=== PATIENT | male | born 1945 | race Asian ===

== ENCOUNTER 2017-03-13 15:09 | Inpatient (IN) | payer MEDICARE, BC ==
[~2017-03-13] VITALS: Ht 160 cm; Wt 68.0 kg
[2017-03-13 16:03] LABS: CONDITION Y; DEFINITIVE SEE PRINTOUT; Eosinophils # (auto) 0.4 uL; Hematocrit 25.6 % (41.0-53.0); Hemoglobin 8.8 g/dL (13.5-17.5); Neutrophils # (auto) 6.3 uL
[2017-03-13 16:22] LABS: Albumin 2.9 g/dL (3.4-5.0); Anion Gap 13 (5-15); Aspartate Aminotransferase 11 U/L (15-37); BUN/Creatinine Ratio 4.3; Blood Urea Nitrogen 57 mg/dL (7-18); Carbon Dioxide 24 mmol/L (21-32); Chloride 105 mmol/L (98-107); GFR African American 5 mL/min; GFR Non-African American 4 mL/min; Glucose 107 mg/dL (74-106); Magnesium 2.4 mg/dL (1.6-2.6); Potassium 3.9 mmol/L (3.5-5.1); Sodium 142 mmol/L (136-145)
[2017-03-13 16:27] LABS: Basophils # (auto) 0.1 uL; Basophils % (auto) 0.5 % (0.0-2.0); Eosinophils % (auto) 3.9 % (0.0-7.0); Lymphocytes # (auto) 1.8 uL; Lymphocytes % (auto) 19.1 % (10.0-50.0); Mean Corpuscular Hemoglobin 35.4 pg (28.0-32.0); Mean Corpuscular Hgb Conc. 34.5 g/dL (32.0-36.0); Mean Corpuscular Volume 102.6 fL (80.0-100.0); Mean Platelet Volume 8.5 fL (7.4-10.4); Monocytes % (auto) 10.7 % (0.0-12.0); Neutrophils % (auto) 65.8 % (37.0-80.0); Platelet Count (auto) 324 10^3/uL (140-450); Red Cell Distribution Width 14.3 % (11.6-16.0); White Blood Cell 9.6 10^3/uL (4.4-10.8)
[2017-03-13 16:30] LABS: Alkaline Phosphatase 78 U/L (45-117); Bilirubin, Total 0.2 mg/dL (0.2-1.0); Total Protein 6.7 g/dL (6.4-8.2)
[2017-03-13] MEDS ORDERED: hydrALAZINE HCL 20 MG/ML VL IV ONE (17:15)
[2017-03-13] MEDS ORDERED: MORPHINE SULF INJ 2 MG/ML SYRINGE 1ML IV PRN ×2 (17:30→17:45)
[2017-03-13] MEDS ORDERED: ACETAMINOPHEN 500 MG TAB PO PRN (17:30)
[2017-03-13] MEDS ORDERED: ONDANSETRON HCL 4 MG/2 ML VIAL IV PRN (17:30)
[2017-03-13] MEDS ORDERED: LORazepam 0.5 MG TAB PO PRN (17:30)
[2017-03-13] MEDS ORDERED: HYDROcodone-ACET 5/325MG TAB PO PRN (17:30)
[2017-03-13] MEDS ORDERED: NITROGLYCERIN 0.4 MG SL TAB SL PRN (17:45)
[2017-03-13] MEDS ORDERED: cloNIDine HCL 0.1 MG TAB PO ONE (17:45)
[2017-03-13] MEDS ORDERED: LABETALOL HCL 5 MG/ML ML 20ML VIAL IV PRN (17:45)
[2017-03-13] MEDS ORDERED: NITROGLYCERIN 0.4 MG SL TAB SL ONE (17:56)
[2017-03-13] MEDS ORDERED: PANTOPRAZOLE 40 MG TAB PO ONE (18:00)
[2017-03-13] MEDS ORDERED: METOPROLOL TARTRATE 50 MG TAB PO ONE (18:15)
[2017-03-13] MEDS: CALCIUM ACETATE 667 MG CAP PO SCH (18:31)
[2017-03-13 18:51] LABS: Vitamin B12 778 pg/mL (211-911)
[2017-03-13 18:57] LABS: Temperature: 23.7 C (20.0-25.0)
[2017-03-13 19:08] LABS: Cholesterol 112 mg/dL (< 200); HDL Cholesterol 28 mg/dL (40-59); LDL Cholesterol 63 mg/dL (< 100); Triglycerides 175 mg/dL (< 150)
[2017-03-13] MEDS ORDERED: METOPROLOL TARTRATE 25 MG TAB PO SCH (22:00)
[2017-03-13] MEDS: ATORVASTATIN 20 MG TAB PO SCH (22:00)
[2017-03-13] MEDS: DOCUSATE SOD 100 MG CAP PO SCH (22:00)
[2017-03-13] MEDS: METOPROLOL TARTRATE 25 MG TAB PO SCH (22:08)
[2017-03-13 23:00] VITALS: BP 174/96
[2017-03-13] MEDS ORDERED: ASPI81CH59 PO (23:27)
[2017-03-13] MEDS ORDERED: ATOR20TA50 PO (23:27)
[2017-03-13] MEDS ORDERED: FURO40TA4 PO (23:27)
[2017-03-13] MEDS ORDERED: CIP500T PR (23:27)
[2017-03-13] MEDS ORDERED: LORA1TAB12 PO (23:27)
[2017-03-13] MEDS ORDERED: LEVO25TA6 PO (23:27)
[2017-03-13] MEDS ORDERED: CLOP75TA41 PO (23:27)
[2017-03-13] MEDS ORDERED: GENT0.1C3 EX (23:27)
[2017-03-13] MEDS ORDERED: DOCU-94 PO (23:27)
[2017-03-13] MEDS ORDERED: CALC0.25 PO (23:27)
[2017-03-13] MEDS ORDERED: ZOLP10TA PO (23:27)
[2017-03-13] MEDS ORDERED: CALC667T2 PO (23:27)
[2017-03-13] MEDS ORDERED: METO25TA5 PO (23:27)
[2017-03-14] MEDS: ZOLPIDEM TARTRATE 5 MG TAB PO PRN ×2 (01:42→21:28)
[2017-03-14 05:50] LABS: Basophils # (auto) 0 uL; Basophils % (auto) 0.4 % (0.0-2.0); CONDITION Y; DEFINITIVE SEE PRINTOUT; Eosinophils # (auto) 0.4 uL; Eosinophils % (auto) 3.7 % (0.0-7.0); Hematocrit 23.2 % (41.0-53.0); Hemoglobin 7.9 g/dL (13.5-17.5); Lymphocytes # (auto) 1.7 uL; Lymphocytes % (auto) 17.9 % (10.0-50.0); Mean Corpuscular Hgb Conc. 33.8 g/dL (32.0-36.0); Mean Corpuscular Volume 103.4 fL (80.0-100.0); Mean Platelet Volume 8.1 fL (7.4-10.4); Monocytes % (auto) 10.5 % (0.0-12.0); Neutrophils # (auto) 6.6 uL; Neutrophils % (auto) 67.5 % (37.0-80.0); Platelet Count (auto) 269 10^3/uL (140-450); Red Cell Distribution Width 14.1 % (11.6-16.0); White Blood Cell 9.8 10^3/uL (4.4-10.8)
[2017-03-14 06:30] LABS: BUN/Creatinine Ratio 4.7; Calcium 9.2 mg/dL (8.5-10.1); Potassium 4.1 mmol/L (3.5-5.1)
[2017-03-14] MEDS: LEVOTHYROXINE SODIUM 25 MCG TAB PO SCH (07:16)
[2017-03-14] MEDS: CALCIUM ACETATE 667 MG CAP PO SCH ×3 (07:56→18:00)
[2017-03-14 08:00] VITALS: BP 155/84
[2017-03-14] MEDS: ASPirin-EC 81 mg tab PO SCH (09:41)
[2017-03-14] MEDS: CALCITRIOL 0.25 MCG CAP PO SCH (09:41)
[2017-03-14] MEDS: PANTOPRAZOLE 40 MG TAB PO SCH (09:41)
[2017-03-14] MEDS: METOPROLOL TARTRATE 25 MG TAB PO SCH ×2 (09:41→21:28)
[2017-03-14] MEDS: DOCUSATE SOD 100 MG CAP PO SCH ×2 (09:42→21:27)
[2017-03-14 12:00] VITALS: BP 157/93
[2017-03-14] MEDS ORDERED: EPOETIN ALFA 10,000 UNIT/1 ML VIAL SC ONE (15:30)
[2017-03-14 16:00] VITALS: BP 140/88
[2017-03-14] MEDS ORDERED: amLODIPine BESYLATE 5 MG TAB PO ONE (17:30)
[2017-03-14] MEDS ORDERED: ISOSORBIDE MONONITRATE 60 MG TAB PO ONE (17:30)
[2017-03-14 19:58] VITALS: BP 116/68
[2017-03-14] MEDS: ATORVASTATIN 20 MG TAB PO SCH (21:28)
[2017-03-15] MEDS: LEVOTHYROXINE SODIUM 25 MCG TAB PO SCH (05:56)
[2017-03-15 06:36] LABS: Eosinophils % (auto) 3.6 % (0.0-7.0); Lymphocytes % (auto) 21.5 % (10.0-50.0); Monocytes % (auto) 9.2 % (0.0-12.0); Neutrophils % (auto) 65.3 % (37.0-80.0); White Blood Cell 9.3 10^3/uL (4.4-10.8)
[2017-03-15 06:37] LABS: Basophils # (auto) 0 uL; Basophils % (auto) 0.4 % (0.0-2.0); CONDITION Y; DEFINITIVE SEE PRINTOUT; Eosinophils # (auto) 0.3 uL; Hematocrit 22.2 % (41.0-53.0); Hemoglobin 7.6 g/dL (13.5-17.5); Mean Corpuscular Hemoglobin 35.1 pg (28.0-32.0); Mean Corpuscular Hgb Conc. 34.3 g/dL (32.0-36.0); Mean Corpuscular Volume 102.4 fL (80.0-100.0); Mean Platelet Volume 8.7 fL (7.4-10.4); Monocytes # (auto) 0.9 uL; Neutrophils # (auto) 6.1 uL; Platelet Count (auto) 263 10^3/uL (140-450); Red Cell Distribution Width 14.2 % (11.6-16.0)
[2017-03-15 08:00] VITALS: BP 130/85
[2017-03-15] MEDS: CALCIUM ACETATE 667 MG CAP PO SCH ×3 (08:00→18:00)
[2017-03-15 08:40] LABS: BUN/Creatinine Ratio 4.7; Calcium 9.8 mg/dL (8.5-10.1)
[2017-03-15] MEDS: PANTOPRAZOLE 40 MG TAB PO SCH (09:37)
[2017-03-15] MEDS: ISOSORBIDE MONONITRATE 60 MG TAB PO SCH (09:37)
[2017-03-15] MEDS: METOPROLOL TARTRATE 25 MG TAB PO SCH ×2 (09:37→21:30)
[2017-03-15] MEDS: ASPirin-EC 81 mg tab PO SCH (09:38)
[2017-03-15] MEDS: DOCUSATE SOD 100 MG CAP PO SCH ×2 (09:38→21:31)
[2017-03-15] MEDS: CALCITRIOL 0.25 MCG CAP PO SCH (09:39)
[2017-03-15] MEDS: amLODIPine BESYLATE 5 MG TAB PO SCH (10:00)
[2017-03-15 12:00] VITALS: BP 109/70
[2017-03-15 15:39] LABS: INR 0.95 (0.9-1.15); Prothrombin Time 10.3 sec (9.37-12.3)
[2017-03-15 15:56] VITALS: BP 116/63
[2017-03-15 19:10] VITALS: BP 141/77
[2017-03-15] MEDS: ATORVASTATIN 20 MG TAB PO SCH (21:29)
[2017-03-15 22:00] VITALS: BP 145/80
[2017-03-16] VITALS (10 sets, daily range): BP systolic 122–159; BP diastolic 69–92
[2017-03-16 05:59] LABS: Hematocrit 22.6 % (41.0-53.0)
[2017-03-16] MEDS: LEVOTHYROXINE SODIUM 25 MCG TAB PO SCH (06:00)
[2017-03-16 06:22] LABS: Calcium 9.5 mg/dL (8.5-10.1); Potassium 3.7 mmol/L (3.5-5.1)
[2017-03-16] MEDS ORDERED: LIDOCAINE 2%HCL (LOCAL ANESTH.) INJ 20ML MDV ONE (07:25)
[2017-03-16] MEDS ORDERED: IODIXANOL 320MG/ML 100ML BTL IV ONE (07:25)
[2017-03-16] MEDS ORDERED: MIDAZOLAM HCL 1MG/1ML-2 ML VIAL ONE (07:27)
[2017-03-16] MEDS ORDERED: SODIUM CHL 0.9% 0 ML ONE (07:27)
[2017-03-16] MEDS ORDERED: ANGIOMAX 250 MG VIAL IV ONE (07:27)
[2017-03-16] MEDS ORDERED: fentaNYL CITRATE 100 MCG/2 ML VL ONE (07:28)
[2017-03-16] MEDS ORDERED: IOHEXOL 350 MG/ML 100ML IJ ONE ×2 (07:43→07:57)
[2017-03-16] MEDS: CALCIUM ACETATE 667 MG CAP PO SCH ×3 (07:46→18:05)
[2017-03-16] MEDS ORDERED: SODIUM CHLORIDE 0.9% 1,000 ML IV SCH (08:45)
[2017-03-16] MEDS: DOCUSATE SOD 100 MG CAP PO SCH ×3 (09:53→21:31)
[2017-03-16] MEDS: ASPirin-EC 81 mg tab PO SCH ×2 (09:53→11:51)
[2017-03-16] MEDS: METOPROLOL TARTRATE 25 MG TAB PO SCH ×3 (09:53→21:31)
[2017-03-16] MEDS: amLODIPine BESYLATE 5 MG TAB PO SCH ×2 (09:53→11:52)
[2017-03-16] MEDS: PANTOPRAZOLE 40 MG TAB PO SCH ×2 (09:53→11:52)
[2017-03-16] MEDS: ISOSORBIDE MONONITRATE 60 MG TAB PO SCH ×2 (09:53→11:51)
[2017-03-16] MEDS: CALCITRIOL 0.25 MCG CAP PO SCH ×2 (09:53→11:53)
[2017-03-16] MEDS ORDERED: VANCOMYCIN 1GM/250ML D5W 250 ML IV ONE (13:30)
[2017-03-16] MEDS ORDERED: ACCU-CHEK COMFORT CURVE STRIP VI ONE ×2 (13:30)
[2017-03-16] MEDS ORDERED: ceFAZolin 1GM/50ML D5W 50 ML IV ONE (13:30)
[2017-03-16 14:29] LABS: Basophils # (auto) 0 uL; Basophils % (auto) 0.1 % (0.0-2.0); CONDITION Y; DEFINITIVE SEE PRINTOUT; Eosinophils # (auto) 0.3 uL; Hematocrit 23.6 % (41.0-53.0); Hemoglobin 8.2 g/dL (13.5-17.5); Lymphocytes # (auto) 1.4 uL; Mean Corpuscular Hgb Conc. 34.7 g/dL (32.0-36.0); Mean Corpuscular Volume 100.9 fL (80.0-100.0); Monocytes # (auto) 1.2 uL; Monocytes % (auto) 11.6 % (0.0-12.0); Neutrophils # (auto) 7.1 uL; Neutrophils % (auto) 71.3 % (37.0-80.0); Platelet Count (auto) 317 10^3/uL (140-450); Red Cell Distribution Width 14.4 % (11.6-16.0); White Blood Cell 9.9 10^3/uL (4.4-10.8)
[2017-03-16 14:51] LABS: Albumin 2.7 g/dL (3.4-5.0); BUN/Creatinine Ratio 5.3; Bilirubin, Total 0.3 mg/dL (0.2-1.0); Calcium 9.5 mg/dL (8.5-10.1); Total Protein 6.4 g/dL (6.4-8.2)
[2017-03-16] MEDS: MUPIROCIN 2% OINT 22GM TOP SCH (20:57)
[2017-03-16] MEDS ORDERED: MUPIROCIN 2% OINT 22GM TOP SCH (21:00)
[2017-03-16] MEDS: ATORVASTATIN 20 MG TAB PO SCH (21:30)
[2017-03-16] MEDS ORDERED: ASCORBIC ACID 500 MG TAB PO ONE ×2 (22:00)
[2017-03-17] VITALS (47 sets, daily range): BP systolic 19–187; BP diastolic 7–105
[2017-03-17] MEDS ORDERED: CHLORHEXIDINE 4% TOPICAL soln 118ML TOP ONE ×2 (02:00)
[2017-03-17] MEDS: MUPIROCIN 2% OINT 22GM TOP SCH ×2 (03:30→21:01)
[2017-03-17 04:03] LABS: Urine RBC None Seen /hpf (0 - 3)
[2017-03-17 04:03] LABS: Basophils # (auto) 0 uL; Basophils % (auto) 0.2 % (0.0-2.0); CONDITION Y; DEFINITIVE SEE PRINTOUT; Eosinophils # (auto) 0.4 uL; Eosinophils % (auto) 3.6 % (0.0-7.0); Hematocrit 23.2 % (41.0-53.0); Lymphocytes # (auto) 1.8 uL; Lymphocytes % (auto) 16.9 % (10.0-50.0); Mean Corpuscular Hemoglobin 35.4 pg (28.0-32.0); Mean Corpuscular Hgb Conc. 34.3 g/dL (32.0-36.0); Mean Corpuscular Volume 103.2 fL (80.0-100.0); Mean Platelet Volume 8.4 fL (7.4-10.4); Monocytes # (auto) 1.3 uL; Neutrophils # (auto) 7.2 uL; Neutrophils % (auto) 67.3 % (37.0-80.0); Platelet Count (auto) 286 10^3/uL (140-450); Red Cell Distribution Width 13.8 % (11.6-16.0); White Blood Cell 10.7 10^3/uL (4.4-10.8)
[2017-03-17 04:15] LABS: INR 0.97 (0.9-1.15); Partial Thromboplastin Time 27.3 sec (22.64-33.71); Prothrombin Time 10.6 sec (9.37-12.3)
[2017-03-17 04:25] LABS: Calcium 9.3 mg/dL (8.5-10.1); Potassium 3.7 mmol/L (3.5-5.1)
[2017-03-17 04:32] LABS: Urine Bilirubin Negative (Negative); Urine Blood Negative /uL (Negative); Urine Color Yellow (Yellow); Urine Ketone Negative (Negative); Urine Nitrite Negative (Negative); Urine Urobilinogen Normal (Negative)
[2017-03-17 04:34] LABS: Urine Glucose 2+ mg/dL (Normal)
[2017-03-17 04:35] LABS: BUN/Creatinine Ratio 5.2
[2017-03-17] MEDS: LEVOTHYROXINE SODIUM 25 MCG TAB PO SCH (04:36)
[2017-03-17] MEDS ORDERED: CHLORHEXIDINE 0.12% ORAL rinse 473ML MT ONE ×2 (06:00→13:30)
[2017-03-17] MEDS ORDERED: ceFAZolin 1GM VL ONE (06:21)
[2017-03-17] MEDS ORDERED: NEOMYCIN-BACITRACIN-POLYM 15GM TOP OINT TOP ONE (06:21)
[2017-03-17] MEDS ORDERED: HEPARIN 1,000 UNITS/ml 1ML VIAL ONE ×2 (06:22→14:23)
[2017-03-17] MEDS ORDERED: PAPAVERINE HCL 60 MG/2 ML 2ML VIAL ONE (06:22)
[2017-03-17] MEDS ORDERED: LIDOCAINE 2%HCL (LOCAL ANESTH.) INJ 20ML MDV ONE (06:24)
[2017-03-17] MEDS ORDERED: MIDAZOLAM HCL 1MG/1ML-2 ML VIAL ONE (06:29)
[2017-03-17] MEDS ORDERED: ALBUMIN 25% 200 ML IV ONE ×2 (07:06→07:20)
[2017-03-17] MEDS ORDERED: PLASMA-LYTE A pH7.4 6,000 ML INJ ONE (07:08)
[2017-03-17] MEDS ORDERED: HEPARIN 30000 UNITS in SODIUM CHLORIDE 0.9% 1000 ML IV ONE (08:00)
[2017-03-17] MEDS ORDERED: EPINEPHrine HCL 4 MG in D5W 5% 250 ML IV ONE (08:00)
[2017-03-17] MEDS ORDERED: InsuLIN R (HUMAN) 100 UNITS in SODIUM CHL 0.9% 99 ML IV ONE (08:00)
[2017-03-17] MEDS ORDERED: CALCIUM CHLOR(10%) 100MG/ML 10ML SYRINGE IV ONE (08:00)
[2017-03-17] MEDS ORDERED: ADENOSINE 6 MG/2 ML INJ IV ONE (08:00)
[2017-03-17] MEDS ORDERED: AMINOCAPROIC ACID 5 GM in SODIUM CHL 0.9% 250 ML IV ONE (08:00)
[2017-03-17] MEDS ORDERED: AMINOCAPROIC ACID 5 GM/20 ML VL IV ONE (08:00)
[2017-03-17] MEDS ORDERED: PHENYLEPHRINE INJ 20 MG in SODIUM CHL 0.9% 250 ML IV ONE (08:00)
[2017-03-17] MEDS ORDERED: VASOPRESSIN 50 UNITS in SODIUM CHL 0.9% 247.5 ML IV ONE (08:00)
[2017-03-17] MEDS ORDERED: HEPARIN SODIUM (PORCINE) 5000 UNITS/ML 1ML VIAL SC ONE (08:00)
[2017-03-17] MEDS ORDERED: DEXAMETHASONE SODIUM PHOSP 120 MG/30ml VIAL IV ONE (08:00)
[2017-03-17] MEDS ORDERED: AMINOCAPROIC ACID 10 GM in SODIUM CHL 0.9% 100 ML IV ONE (08:00)
[2017-03-17] MEDS ORDERED: POTASSIUM CHL 2MEQ/ML 20ML IV ONE (08:00)
[2017-03-17] MEDS ORDERED: LIDOCAINE HCL 2 % INJ 2ML MPF IJ ONE (08:00)
[2017-03-17] MEDS ORDERED: MAGNESIUM SULF 50% 40 MEQ/10 ML VL IV ONE (08:00)
[2017-03-17] MEDS ORDERED: SODIUM BICARBONATE 8.4% INJ 50ML SYRINGE IV ONE ×2 (08:00→17:15)
[2017-03-17] MEDS ORDERED: PHENYLEPHRINE HCL 10 MG/ML VL IV ONE (08:00)
[2017-03-17 08:10] LABS: Allen Test Yes; Base Excess 3.1 mmol/L (-2.0-2.0); Blood 02Sat 92.8 % (96-100); Blood COHb 0.3 % (0.5-1.5); Blood MetHb 0.4 % (0.0-1.5); HCO3 26.5 mmol/L (22-26.0); HHb 7.1 % (0.0-5.0); MODE ROOM AIR; O2Hb 92.2 % (94.0-97.0); PCO2 35.6 mmHg (35.0-45.0); PCO2(T) 35.6 mmHg (35.0-45.0); PO2 70.3 mmHg (80.0-100.0); PO2(T) 70.3 mmHg (80.0-100.0); Room 0271T; Sample Type Arterial; pH 7.489 (7.350-7.450)
[2017-03-17] MEDS ORDERED: fentaNYL CITRATE 10 ML ONE (08:15)
[2017-03-17] MEDS ORDERED: PROPOFOL 200 ML IV ONE (08:59)
[2017-03-17] MEDS ORDERED: AMINOCAPROIC ACID 5 GM/20 ML IV ONE (11:35)
[2017-03-17] MEDS ORDERED: POTASSIUM CHL 20MEQ/100ML 200 ML IV ONE (11:41)
[2017-03-17] MEDS ORDERED: MAGNESIUM SULFATE 1GM/100ML 100 ML IV ONE (11:41)
[2017-03-17] MEDS ORDERED: ALBUMIN 5% 750 ML IV ONE (11:41)
[2017-03-17] MEDS ORDERED: PROTAMINE SULFATE 250 MG/25 ML VL IV ONE (13:58)
[2017-03-17] MEDS ORDERED: HEPARIN SODIUM (PORCINE) 5000 UNITS/ML 1ML VIAL ONE (14:23)
[2017-03-17] MEDS ORDERED: NITROGLYCERIN 50MG/250ML 250 ML IV SCH (14:40)
[2017-03-17] MEDS ORDERED: INSULIN DRIP 100 UNIT/100ML 100 ML IV SCH (14:40)
[2017-03-17] MEDS ORDERED: SODIUM BICARBONATE 8.4% INJ 50ML SYRINGE IV PRN (14:45)
[2017-03-17] MEDS ORDERED: AMIODARONE HCL 150 MG in D5W 5% 100 ML IV ONE (14:45)
[2017-03-17] MEDS ORDERED: AMIODARONE HCL 900 MG in DEXTROSE 500 ML IV SCH (14:50)
[2017-03-17] MEDS ORDERED: ONDANSETRON HCL 4 MG/2 ML VIAL IV PRN (15:15)
[2017-03-17] MEDS ORDERED: MAGNESIUM SULFATE 1GM/100ML 100 ML IV PRN (15:15)
[2017-03-17] MEDS ORDERED: POTASSIUM CHL 20MEQ/100ML 100 ML IV PRN (15:15)
[2017-03-17 15:24] LABS: Base Excess 2.9 mmol/L (-2.0-2.0); Blood COHb 0.2 % (0.5-1.5); Blood MetHb 0.4 % (0.0-1.5); HCO3 26.5 mmol/L (22-26.0); MODE VENT - A/C; O2Hb 98.4 % (94.0-97.0); PCO2(T) 34.9 mmHg (35.0-45.0); PO2(T) 465.6 mmHg (80.0-100.0); Sample Type Arterial; pH 7.485 (7.350-7.450)
[2017-03-17 15:25] LABS: Base Excess -1.1 mmol/L (-2.0-2.0); Blood 02Sat 98.7 % (96-100); Blood COHb 0.3 % (0.5-1.5); HCO3 22.5 mmol/L (22-26.0); HHb 1.3 % (0.0-5.0); MODE VENT - A/C; O2Hb 97.4 % (94.0-97.0); PCO2 32.1 mmHg (35.0-45.0); PCO2(T) 32.1 mmHg (35.0-45.0); PO2 361.2 mmHg (80.0-100.0); PO2(T) 361.2 mmHg (80.0-100.0); Sample Type Arterial; pH 7.463 (7.350-7.450)
[2017-03-17 15:27] LABS: Base Excess 0.1 mmol/L (-2.0-2.0); Blood 02Sat 98.6 % (96-100); Blood MetHb 1.4 % (0.0-1.5); HCO3 23.1 mmol/L (22-26.0); HHb 1.4 % (0.0-5.0); MODE VENT - A/C; O2Hb 97.2 % (94.0-97.0); PCO2 29.4 mmHg (35.0-45.0); PCO2(T) 26.9 mmHg (35.0-45.0); PO2 560.3 mmHg (80.0-100.0); PO2(T) 545.6 mmHg (80.0-100.0); Sample Type Arterial; pH 7.513 (7.350-7.450)
[2017-03-17 15:28] LABS: Base Excess -3.3 mmol/L (-2.0-2.0); Blood 02Sat 98.6 % (96-100); Blood COHb 0.3 % (0.5-1.5); HCO3 20.2 mmol/L (22-26.0); HHb 1.4 % (0.0-5.0); MODE OXYGENATOR/CPB; O2Hb 97.3 % (94.0-97.0); PCO2 29.8 mmHg (35.0-45.0); PO2 354.5 mmHg (80.0-100.0); PO2(T) 334.2 mmHg (80.0-100.0); Sample Type Arterial; pH 7.449 (7.350-7.450)
[2017-03-17 15:29] LABS: Base Excess 1.1 mmol/L (-2.0-2.0); Blood 02Sat 98.4 % (96-100); Blood COHb 0.3 % (0.5-1.5); HCO3 24.9 mmol/L (22-26.0); HHb 1.6 % (0.0-5.0); MODE OXYGENATOR/CPB; O2Hb 97.1 % (94.0-97.0); PCO2(T) 29.7 mmHg (35.0-45.0); PO2 305.6 mmHg (80.0-100.0); PO2(T) 284.9 mmHg (80.0-100.0); Sample Type Arterial; pH 7.458 (7.350-7.450)
[2017-03-17 15:30] LABS: Base Excess 1.8 mmol/L (-2.0-2.0); Blood 02Sat 98.5 % (96-100); Blood MetHb 0.9 % (0.0-1.5); HCO3 25.6 mmol/L (22-26.0); HHb 1.5 % (0.0-5.0); MODE OXYGENATOR/CPB; O2Hb 97.6 % (94.0-97.0); PCO2 36.6 mmHg (35.0-45.0); PCO2(T) 30.7 mmHg (35.0-45.0); PO2 282.1 mmHg (80.0-100.0); PO2(T) 263.6 mmHg (80.0-100.0); Sample Type Arterial; pH 7.463 (7.350-7.450)
[2017-03-17 15:32] LABS: Base Excess -2.5 mmol/L (-2.0-2.0); Blood 02Sat 98.5 % (96-100); Blood COHb 0.3 % (0.5-1.5); Blood MetHb 0.8 % (0.0-1.5); HCO3 22.4 mmol/L (22-26.0); HHb 1.5 % (0.0-5.0); MODE VENT - A/C; O2Hb 97.4 % (94.0-97.0); PCO2 38.9 mmHg (35.0-45.0); PCO2(T) 38.9 mmHg (35.0-45.0); Sample Type Arterial; pH 7.378 (7.350-7.450)
[2017-03-17 15:32] LABS: Base Excess 0.8 mmol/L (-2.0-2.0); Blood 02Sat 98.5 % (96-100); Blood COHb 0.1 % (0.5-1.5); HHb 1.5 % (0.0-5.0); MODE OXYGENATOR/CPB; O2Hb 97.4 % (94.0-97.0); PCO2 37.6 mmHg (35.0-45.0); PO2(T) 309.4 mmHg (80.0-100.0); Sample Type Arterial
[2017-03-17 15:33] LABS: Base Excess -0.2 mmol/L (-2.0-2.0); Blood 02Sat 98.4 % (96-100); Blood COHb 0.3 % (0.5-1.5); Blood MetHb 0.9 % (0.0-1.5); HCO3 24.7 mmol/L (22-26.0); HHb 1.6 % (0.0-5.0); MODE OXYGENATOR/CPB; O2Hb 97.2 % (94.0-97.0); PCO2(T) 37.6 mmHg (35.0-45.0); PO2 312.7 mmHg (80.0-100.0); Sample Type Arterial; pH 7.397 (7.350-7.450)
[2017-03-17] MEDS ORDERED: MORPHINE SULFATE 4 MG/ML SYRG IV PRN (15:45)
[2017-03-17] MEDS: ACCU-CHEK COMFORT CURVE STRIP VI SCH ×9 (16:00→23:00)
[2017-03-17 16:37] LABS: Base Excess -6.8 mmol/L (-2.0-2.0); Blood 02Sat 98.4 % (96-100); Blood MetHb 0.2 % (0.0-1.5); HHb 1.6 % (0.0-5.0); MODE VENT - A/C; O2Hb 98.2 % (94.0-97.0); PCO2 28.4 mmHg (35.0-45.0); PCO2(T) 28.4 mmHg (35.0-45.0); PO2 375.6 mmHg (80.0-100.0); PO2(T) 375.6 mmHg (80.0-100.0); Sample Type Arterial; pH 7.396 (7.350-7.450)
[2017-03-17 16:43] LABS: MODE VENT - A/C; Sample Type Venous; Venous Blood COHb 0.8 % (0.5-1.5); Venous Blood MetHb 0.3 % (0.0-1.5); Venous Blood O2Hb 70.2 % (94.0-97.0); Venous Blood PO2 37.3 mmHg (38.0-42.0); Venous Blood PO2(T) 37.3 mmHg (38.0-42.0); Venous Deoxyhemoglobin 28.7 % (0.0-5.0)
[2017-03-17] MEDS: ALBUMIN 5% 250 ML IV PRN ×2 (17:00→22:30)
[2017-03-17] MEDS: SODIUM CHLORIDE 0.9% 1,000 ML IV SCH (17:00)
[2017-03-17 17:04] LABS: INR 1.15 (0.9-1.15); Partial Thromboplastin Time 54.6 sec (22.64-33.71)
[2017-03-17 17:20] LABS: Prothrombin Time 12.6 sec (9.37-12.3)
[2017-03-17 17:32] LABS: Albumin 3.1 g/dL (3.4-5.0); BUN/Creatinine Ratio 5.4; Bilirubin, Total 2.6 mg/dL (0.2-1.0); Calcium 7.6 mg/dL (8.5-10.1); Phosphorus 1.4 mg/dL (2.5-4.90); Total Protein 5.1 g/dL (6.4-8.2)
[2017-03-17 17:37] LABS: Magnesium 4.2 mg/dL (1.6-2.6); Potassium 5.9 mmol/L (3.5-5.1)
[2017-03-17 17:39] LABS: Basophils # (auto) 0 uL; CONDITION Y; Eosinophils # (auto) 0 uL; Eosinophils % (auto) 0.1 % (0.0-7.0); Hematocrit 25.2 % (41.0-53.0); Hemoglobin 8.7 g/dL (13.5-17.5); Lymphocytes # (auto) 0.9 uL; Lymphocytes % (auto) 7.1 % (10.0-50.0); Mean Corpuscular Hemoglobin 32.9 pg (28.0-32.0); Mean Corpuscular Hgb Conc. 34.6 g/dL (32.0-36.0); Mean Corpuscular Volume 95.1 fL (80.0-100.0); Mean Platelet Volume 7.7 fL (7.4-10.4); Monocytes # (auto) 0.8 uL; Monocytes % (auto) 6.8 % (0.0-12.0); Neutrophils # (auto) 10.5 uL; Platelet Count (auto) 111 10^3/uL (140-450); Red Cell Distribution Width 16.5 % (11.6-16.0); White Blood Cell 12.2 10^3/uL (4.4-10.8)
[2017-03-17] MEDS: SODIUM CHLORIDE 0.9% 500 ML IV SCH (18:08)
[2017-03-17] MEDS: MILRINONE 20MG/100ML 100 ML IV SCH (18:08)
[2017-03-17] MEDS: PROPOFOL 100 ML IV SCH (18:14)
[2017-03-17] MEDS: NICARDIPINE 25MG/250ML BAG KIT 250 ML IV SCH ×2 (18:14→19:40)
[2017-03-17] MEDS: NOREPINEPHRINE BITARTRATE 250 ML IV SCH (18:14)
[2017-03-17] MEDS: PHENYLEPHRINE IV 250 ML IV SCH (18:15)
[2017-03-17] MEDS ORDERED: DESMOPRESSIN INJECTION 20 MCG in SODIUM CHL 0.9% 50 ML IV ONE (18:30)
[2017-03-17 18:43] LABS: Base Excess -4.3 mmol/L (-2.0-2.0); Blood 02Sat 96.6 % (96-100); Blood COHb 0.1 % (0.5-1.5); Blood MetHb 0.5 % (0.0-1.5); HCO3 20.2 mmol/L (22-26.0); HHb 3.4 % (0.0-5.0); MODE VENT - A/C; PCO2 34.4 mmHg (35.0-45.0); PCO2(T) 32.9 mmHg (35.0-45.0); Sample Type Arterial; pH 7.387 (7.350-7.450)
[2017-03-17] MEDS ORDERED: CALCIUM GLUC 4.65meq/50ml D5AE 50 ML IV ONE (18:45)
[2017-03-17] MEDS: VANCOMYCIN 1GM/250ML D5W 250 ML IV SCH ×2 (18:59→21:00)
[2017-03-17] MEDS: ceFAZolin 1GM/50ML D5W 50 ML IV SCH (19:00)
[2017-03-17] MEDS ORDERED: SODIUM CHL 0.9% 1000 ML BAG XX ONE (19:15)
[2017-03-17] MEDS ORDERED: PROTAMINE SULFATE 10 MG/ML 5ML VIAL IV ONE (19:15)
[2017-03-17] MEDS ORDERED: MORPHINE SULF INJ 2 MG/ML SYRINGE 1ML ONE (19:33)
[2017-03-17] MEDS: MORPHINE SULF INJ 2 MG/ML SYRINGE 1ML IV PRN (19:35)
[2017-03-17] MEDS: AMIODARONE HCL 900 MG in DEXTROSE 500 ML IV SCH (20:50)
[2017-03-17 21:25] LABS: Basophils # (auto) 0 uL; Basophils % (auto) 0.1 % (0.0-2.0); CONDITION Y; Eosinophils # (auto) 0 uL; Eosinophils % (auto) 0.1 % (0.0-7.0); Hematocrit 30.5 % (41.0-53.0); Hemoglobin 10.4 g/dL (13.5-17.5); Lymphocytes # (auto) 0.7 uL; Lymphocytes % (auto) 6.4 % (10.0-50.0); Mean Corpuscular Hemoglobin 31.4 pg (28.0-32.0); Mean Corpuscular Volume 92.5 fL (80.0-100.0); Mean Platelet Volume 7.4 fL (7.4-10.4); Monocytes # (auto) 0.6 uL; Monocytes % (auto) 5.3 % (0.0-12.0); Neutrophils # (auto) 10.3 uL; Neutrophils % (auto) 88.1 % (37.0-80.0); Platelet Count (auto) 213 10^3/uL (140-450); Red Cell Distribution Width 16.8 % (11.6-16.0); White Blood Cell 11.7 10^3/uL (4.4-10.8)
[2017-03-17 21:43] LABS: INR 1.06 (0.9-1.15); Partial Thromboplastin Time 31.6 sec (22.64-33.71); Prothrombin Time 11.6 sec (9.37-12.3)
[2017-03-17 21:48] LABS: BUN/Creatinine Ratio 5.6; Calcium 7.3 mg/dL (8.5-10.1); Magnesium 3.1 mg/dL (1.6-2.6); Phosphorus 1.5 mg/dL (2.5-4.90); Potassium 3.4 mmol/L (3.5-5.1)
[2017-03-17] MEDS: CHLORHEXIDINE 0.12% ORAL rinse 473ML MT SCH (22:00)
[2017-03-17] MEDS ORDERED: CALCIUM GLUC 4.65 MEQ/10ML 20 ML IV ONE (23:28)
[2017-03-17] MEDS ORDERED: D5AE IV ONE (23:30)
[2017-03-17] MEDS ORDERED: CALCIUM GLUC IV ONE (23:30)
[2017-03-18] VITALS (104 sets, daily range): BP systolic 23–144; BP diastolic 4–65
[2017-03-18] MEDS: SODIUM CHLORIDE 0.9% 1,000 ML IV SCH ×2 (00:40→10:40)
[2017-03-18] MEDS: NICARDIPINE 25MG/250ML BAG KIT 250 ML IV SCH ×5 (00:40→20:40)
[2017-03-18] MEDS: ACCU-CHEK COMFORT CURVE STRIP VI SCH ×17 (01:00→21:37)
[2017-03-18] MEDS: ceFAZolin 1GM/50ML D5W 50 ML IV SCH ×4 (02:33→19:43)
[2017-03-18] MEDS: PROPOFOL 100 ML IV SCH (02:33)
[2017-03-18] MEDS: MILRINONE 20MG/100ML 100 ML IV SCH (04:15)
[2017-03-18 04:33] LABS: Base Excess -0.3 mmol/L (-2.0-2.0); Blood 02Sat 96.1 % (96-100); Blood COHb 0.5 % (0.5-1.5); Blood MetHb 0.4 % (0.0-1.5); HCO3 22.6 mmol/L (22-26.0); HHb 3.9 % (0.0-5.0); MODE VENT - A/C; O2Hb 95.2 % (94.0-97.0); PCO2(T) 29.4 mmHg (35.0-45.0); PO2(T) 90.2 mmHg (80.0-100.0); Sample Type Arterial; pH 7.495 (7.350-7.450)
[2017-03-18 05:16] LABS: Basophils # (auto) 0 uL; CONDITION Y; DEFINITIVE SEE PRINTOUT; Eosinophils # (auto) 0 uL; Hemoglobin 7.4 g/dL (13.5-17.5); Lymphocytes # (auto) 0.6 uL; Lymphocytes % (auto) 6.7 % (10.0-50.0); Mean Corpuscular Hgb Conc. 35.1 g/dL (32.0-36.0); Mean Corpuscular Volume 91.1 fL (80.0-100.0); Mean Platelet Volume 7.5 fL (7.4-10.4); Monocytes # (auto) 0.4 uL; Monocytes % (auto) 4.2 % (0.0-12.0); Neutrophils # (auto) 8.4 uL; Neutrophils % (auto) 89.1 % (37.0-80.0); Platelet Count (auto) 220 10^3/uL (140-450); Red Cell Distribution Width 17.4 % (11.6-16.0); White Blood Cell 9.4 10^3/uL (4.4-10.8)
[2017-03-18 05:40] LABS: BUN/Creatinine Ratio 5.3; Calcium 7.8 mg/dL (8.5-10.1); Magnesium 3.2 mg/dL (1.6-2.6); Phosphorus 2.2 mg/dL (2.5-4.90); Potassium 3.9 mmol/L (3.5-5.1)
[2017-03-18] MEDS ORDERED: SODIUM PHOSPHATES 20 MEQ in SODIUM CHL 0.9% 100 ML IV ONE (06:00)
[2017-03-18] MEDS ORDERED: CALCIUM GLUC 4.65meq/50ml D5AE 50 ML IV ONE (06:00)
[2017-03-18] MEDS ORDERED: CALCIUM GLUC 4.65 MEQ/10ML 10 ML IV ONE (06:07)
[2017-03-18] MEDS: MUPIROCIN 2% OINT 22GM TOP SCH (07:16)
[2017-03-18 09:20] LABS: INR 1.05 (0.9-1.15); Prothrombin Time 11.5 sec (9.37-12.3)
[2017-03-18] MEDS: MORPHINE SULF INJ 2 MG/ML SYRINGE 1ML IV PRN ×2 (09:37→19:44)
[2017-03-18] MEDS ORDERED: POTASSIUM PHOSPHATE 22 MEQ in SODIUM CHL 0.9% 100 ML IV ONE (09:45)
[2017-03-18] MEDS ORDERED: PANTOPRAZOLE 40 MG/10 ML VIAL IV SCH (10:00)
[2017-03-18] MEDS: CHLORHEXIDINE 0.12% ORAL rinse 473ML MT SCH ×2 (10:11→21:36)
[2017-03-18] MEDS: VANCOMYCIN 1GM/250ML D5W 250 ML IV SCH ×2 (10:13→21:37)
[2017-03-18 13:13] LABS: Basophils # (auto) 0 uL; CONDITION Y; Eosinophils # (auto) 0 uL; Hematocrit 26.6 % (41.0-53.0); Hemoglobin 9.2 g/dL (13.5-17.5); Lymphocytes # (auto) 0.6 uL; Lymphocytes % (auto) 5.4 % (10.0-50.0); Mean Corpuscular Hemoglobin 31.6 pg (28.0-32.0); Mean Corpuscular Hgb Conc. 34.5 g/dL (32.0-36.0); Mean Corpuscular Volume 91.6 fL (80.0-100.0); Mean Platelet Volume 7.9 fL (7.4-10.4); Monocytes # (auto) 0.2 uL; Monocytes % (auto) 1.5 % (0.0-12.0); Neutrophils # (auto) 9.8 uL; Neutrophils % (auto) 93.1 % (37.0-80.0); Platelet Count (auto) 163 10^3/uL (140-450); White Blood Cell 10.5 10^3/uL (4.4-10.8)
[2017-03-18 13:27] LABS: Potassium 3.8 mmol/L (3.5-5.1)
[2017-03-18 13:28] LABS: INR 1.01 (0.9-1.15); Partial Thromboplastin Time 32.7 sec (22.64-33.71)
[2017-03-18 13:30] LABS: Magnesium 2.8 mg/dL (1.6-2.6)
[2017-03-18] MEDS: IPRATROPIUM BROM 0.5 MG/2.5ML INH SOL NEB SCH ×3 (14:00→18:22)
[2017-03-18] MEDS: NOREPINEPHRINE BITARTRATE 250 ML IV SCH (14:40)
[2017-03-18] MEDS: PHENYLEPHRINE IV 250 ML IV SCH (14:40)
[2017-03-18 15:05] LABS: Base Excess -5.3 mmol/L (-2.0-2.0); Blood 02Sat 96.5 % (96-100); Blood MetHb 0.4 % (0.0-1.5); HCO3 17.4 mmol/L (22-26.0); HHb 3.5 % (0.0-5.0); MODE VENT - CPAP; O2Hb 96.1 % (94.0-97.0); PCO2 24.9 mmHg (35.0-45.0); PCO2(T) 24.9 mmHg (35.0-45.0); PO2 95.8 mmHg (80.0-100.0); PO2(T) 95.8 mmHg (80.0-100.0); Pressure Support 8; Sample Type Arterial; Spont Vt 480; pH 7.461 (7.350-7.450)
[2017-03-18] MEDS ORDERED: ONDANSETRON HCL 4 MG/2 ML VIAL IV PRN (15:30)
[2017-03-18] MEDS ORDERED: DEXTROSE (50%) 50ML SYRG IV PRN (15:30)
[2017-03-18] MEDS ORDERED: MORPHINE SULF INJ 2 MG/ML SYRINGE 1ML IV PRN ×3 (15:30→16:45)
[2017-03-18] MEDS ORDERED: HYDROcodone-ACET 7.5/325MG TAB PO PRN (15:30)
[2017-03-18] MEDS ORDERED: PROPRANOLOL HCL 1 MG/ML VIAL IV PRN (16:00)
[2017-03-18] MEDS ORDERED: ZOLPIDEM TARTRATE 5 MG TAB PO PRN (16:00)
[2017-03-18] MEDS ORDERED: MORPHINE SULF INJ 2 MG/ML SYRINGE 1ML ONE (16:16)
[2017-03-18] MEDS: SODIUM CHLORIDE 0.9% 500 ML IV SCH (16:23)
[2017-03-18] MEDS ORDERED: NITROGLYCERIN 0.4MG/HR TOPICAL PATCH TD ONE (16:30)
[2017-03-18] MEDS ORDERED: DESMOPRESSIN INJECTION 20 MCG in SODIUM CHL 0.9% 50 ML IV ONE (18:00)
[2017-03-18] MEDS: InsuLIN REG 1unit/0.01ml Soln (100units/ml) SC SCH ×2 (18:00→21:47)
[2017-03-18] MEDS: FUROSEMIDE 40 MG TAB PO SCH (18:21)
[2017-03-18 18:22] LABS: CONDITION Y; Hematocrit 27.1 % (41.0-53.0); Hemoglobin 9.2 g/dL (13.5-17.5); Mean Corpuscular Hemoglobin 31.4 pg (28.0-32.0); Mean Corpuscular Hgb Conc. 33.9 g/dL (32.0-36.0); Mean Corpuscular Volume 92.6 fL (80.0-100.0); Mean Platelet Volume 8.5 fL (7.4-10.4); Platelet Count (auto) 153 10^3/uL (140-450); Red Cell Distribution Width 16.8 % (11.6-16.0); SUSPECT SEE PRINTOUT; White Blood Cell 13.5 10^3/uL (4.4-10.8)
[2017-03-18] MEDS: ACETYLCYSTEINE 10 %(100MG/ML) SOL 4ML NEB SCH (18:23)
[2017-03-18 18:32] LABS: Metamyelocytes % 0; Myelocytes % 0; Promyelocytes % 0; Reactive Lymphocytes 0
[2017-03-18 19:03] LABS: Ovalocytes FEW; Platelet Estimate Adequate
[2017-03-18 19:04] LABS: Burr Cells MODERATE
[2017-03-18] MEDS: Boost Glucose Control 8 Ounces PO SCH (19:43)
[2017-03-18] MEDS: CALCIUM ACETATE 667 MG CAP PO SCH (19:45)
[2017-03-18] MEDS: AMIODARONE HCL 900 MG in DEXTROSE 500 ML IV SCH (20:50)
[2017-03-18] MEDS: DOCUSATE SOD 100 MG CAP PO SCH (21:35)
[2017-03-18] MEDS: ASCORBIC ACID 500 MG TAB PO SCH (21:35)
[2017-03-18] MEDS: ATORVASTATIN 20 MG TAB PO SCH (21:35)
[2017-03-18] MEDS ORDERED: METOPROLOL TARTRATE 25 MG TAB PO SCH (22:00)
[2017-03-19] VITALS (77 sets, daily range): BP systolic 87–163; BP diastolic 42–103
[2017-03-19] MEDS: NICARDIPINE 25MG/250ML BAG KIT 250 ML IV SCH ×5 (01:40→21:40)
[2017-03-19] MEDS: InsuLIN REG 1unit/0.01ml Soln (100units/ml) SC SCH ×6 (02:02→21:54)
[2017-03-19] MEDS: ACCU-CHEK COMFORT CURVE STRIP VI SCH ×6 (02:02→21:37)
[2017-03-19] MEDS: ceFAZolin 1GM/50ML D5W 50 ML IV SCH ×2 (03:46→12:25)
[2017-03-19] MEDS ORDERED: CHLORHEXIDINE 4% TOPICAL soln 118ML TOP ONE (04:41)
[2017-03-19] MEDS: IPRATROPIUM BROM 0.5 MG/2.5ML INH SOL NEB SCH ×5 (06:02→22:01)
[2017-03-19] MEDS: ACETYLCYSTEINE 10 %(100MG/ML) SOL 4ML NEB SCH ×3 (06:02→22:00)
[2017-03-19 06:26] LABS: CONDITION Y; Hematocrit 27.8 % (41.0-53.0); Hemoglobin 9.6 g/dL (13.5-17.5); Mean Corpuscular Hemoglobin 32.1 pg (28.0-32.0); Mean Corpuscular Hgb Conc. 34.6 g/dL (32.0-36.0); Mean Corpuscular Volume 92.7 fL (80.0-100.0); Mean Platelet Volume 9.1 fL (7.4-10.4); Platelet Count (auto) 141 10^3/uL (140-450); Red Cell Distribution Width 17.1 % (11.6-16.0); SUSPECT SEE PRINTOUT; White Blood Cell 14.8 10^3/uL (4.4-10.8)
[2017-03-19 06:38] LABS: INR 0.91 (0.9-1.15); Metamyelocytes % 0; Myelocytes % 0; Promyelocytes % 0; Prothrombin Time 9.9 sec (9.37-12.3); Reactive Lymphocytes 0
[2017-03-19 06:49] LABS: BUN/Creatinine Ratio 6.5; Calcium 7.2 mg/dL (8.5-10.1); Magnesium 2.8 mg/dL (1.6-2.6); Potassium 4.6 mmol/L (3.5-5.1)
[2017-03-19 06:53] LABS: Bilirubin, Total 0.7 mg/dL (0.2-1.0); Total Protein 5.5 g/dL (6.4-8.2)
[2017-03-19] MEDS: Boost Glucose Control 8 Ounces PO SCH ×3 (08:00→18:00)
[2017-03-19 08:17] LABS: Burr Cells MODERATE; Giant Platelets Few; Ovalocytes FEW; Platelet Estimate Adequate
[2017-03-19] MEDS ORDERED: CALCIUM GLUC 4.65meq/50ml D5AE 50 ML IV ONE (09:45)
[2017-03-19] MEDS ORDERED: SODIUM CHL 0.9% 1000 ML BAG XX ONE (09:45)
[2017-03-19] MEDS ORDERED: EPOETIN ALFA 10,000 UNIT/1 ML VIAL IV ONE (09:45)
[2017-03-19] MEDS: DOCUSATE SOD 100 MG CAP PO SCH ×2 (09:58→21:36)
[2017-03-19] MEDS: CALCIUM ACETATE 667 MG CAP PO SCH ×2 (09:59→17:35)
[2017-03-19] MEDS: LEVOTHYROXINE SODIUM 25 MCG TAB PO SCH (09:59)
[2017-03-19] MEDS: ASCORBIC ACID 500 MG TAB PO SCH ×2 (09:59→21:36)
[2017-03-19] MEDS: FUROSEMIDE 40 MG TAB PO SCH ×2 (09:59→17:36)
[2017-03-19] MEDS: ASPirin 81 mg TAB PO SCH (09:59)
[2017-03-19] MEDS: CHLORHEXIDINE 0.12% ORAL rinse 473ML MT SCH ×2 (10:00→21:37)
[2017-03-19] MEDS: METOPROLOL TARTRATE 25 MG TAB PO SCH ×2 (10:00→21:36)
[2017-03-19] MEDS: VANCOMYCIN 1GM/250ML D5W 250 ML IV SCH (10:00)
[2017-03-19] MEDS ORDERED: PANTOPRAZOLE 40 MG/10 ML VIAL IV SCH (10:00)
[2017-03-19] MEDS: MORPHINE SULF INJ 2 MG/ML SYRINGE 1ML IV PRN (10:01)
[2017-03-19] MEDS: NITROGLYCERIN 0.4MG/HR TOPICAL PATCH TD SCH (10:01)
[2017-03-19] MEDS ORDERED: DEXTROSE (50%) 50ML SYRG IV PRN (11:00)
[2017-03-19] MEDS ORDERED: METOCLOPRAMIDE HCL 5MG/ml INJ 2ml VIAL IV PRN (11:15)
[2017-03-19] MEDS ORDERED: diphenhdrAMINE HCL 25 MG CAP PO PRN (11:30)
[2017-03-19] MEDS: SENNA 8.6 MG TAB PO PRN (12:26)
[2017-03-19] MEDS ORDERED: ALBUMIN 25% 50 ML IV ONE (13:45)
[2017-03-19] MEDS: SODIUM CHLORIDE 0.9% 500 ML IV SCH (14:40)
[2017-03-19] MEDS ORDERED: SODIUM CHLORIDE 0.9% 1,000 ML IV SCH ×2 (14:40)
[2017-03-19] MEDS: AMIODARONE HCL 900 MG in DEXTROSE 500 ML IV SCH (20:50)
[2017-03-19] MEDS: HYDROcodone-ACET 5/325MG TAB PO PRN (21:36)
[2017-03-19] MEDS: ATORVASTATIN 20 MG TAB PO SCH (21:36)
[2017-03-19] MEDS ORDERED: POTASSIUM CHL 10% (20 MEQ/15ML) ORAL SOLN PO ONE (23:00)
[2017-03-19] MEDS: hydrALAZINE HCL 20 MG/ML VL IV PRN (23:41)
[2017-03-20] VITALS (56 sets, daily range): BP systolic 115–170; BP diastolic 68–116
[2017-03-20] MEDS: NICARDIPINE 25MG/250ML BAG KIT 250 ML IV SCH ×5 (02:40→22:40)
[2017-03-20 03:48] LABS: Basophils # (auto) 0 uL; CONDITION Y; Eosinophils # (auto) 0 uL; Eosinophils % (auto) 0.1 % (0.0-7.0); Hemoglobin 9.5 g/dL (13.5-17.5); Lymphocytes # (auto) 0.9 uL; Lymphocytes % (auto) 7.4 % (10.0-50.0); Mean Corpuscular Hemoglobin 31.2 pg (28.0-32.0); Mean Corpuscular Hgb Conc. 33.9 g/dL (32.0-36.0); Mean Corpuscular Volume 92.2 fL (80.0-100.0); Monocytes # (auto) 0.8 uL; Neutrophils # (auto) 10.4 uL; Neutrophils % (auto) 85.5 % (37.0-80.0); Platelet Count (auto) 104 10^3/uL (140-450); Red Cell Distribution Width 16.8 % (11.6-16.0); White Blood Cell 12.1 10^3/uL (4.4-10.8)
[2017-03-20 04:05] LABS: Calcium 7.1 mg/dL (8.5-10.1); Magnesium 2.6 mg/dL (1.6-2.6); Potassium 3.7 mmol/L (3.5-5.1)
[2017-03-20 04:10] LABS: Bilirubin, Total 0.8 mg/dL (0.2-1.0); Total Protein 5.4 g/dL (6.4-8.2)
[2017-03-20] MEDS: FUROSEMIDE 40 MG TAB PO SCH ×2 (05:40→17:57)
[2017-03-20] MEDS: hydrALAZINE HCL 20 MG/ML VL IV PRN ×2 (05:41→22:42)
[2017-03-20] MEDS: ACCU-CHEK COMFORT CURVE STRIP VI SCH ×4 (06:40→21:34)
[2017-03-20] MEDS: LEVOTHYROXINE SODIUM 25 MCG TAB PO SCH (06:40)
[2017-03-20] MEDS: InsuLIN REG 1unit/0.01ml Soln (100units/ml) SC SCH ×4 (06:40→21:34)
[2017-03-20] MEDS: IPRATROPIUM BROM 0.5 MG/2.5ML INH SOL NEB SCH ×5 (06:56→22:11)
[2017-03-20] MEDS: ACETYLCYSTEINE 10 %(100MG/ML) SOL 4ML NEB SCH ×3 (06:57→22:11)
[2017-03-20] MEDS: CALCIUM ACETATE 667 MG CAP PO SCH ×2 (08:32→17:57)
[2017-03-20] MEDS: DOCUSATE SOD 100 MG CAP PO SCH ×2 (09:10→21:34)
[2017-03-20] MEDS: ASPirin 81 mg TAB PO SCH (09:10)
[2017-03-20] MEDS: ASCORBIC ACID 500 MG TAB PO SCH ×2 (09:10→21:34)
[2017-03-20] MEDS: PANTOPRAZOLE 40 MG TAB PO SCH (09:10)
[2017-03-20] MEDS: METOPROLOL TARTRATE 25 MG TAB PO SCH ×3 (09:10→21:34)
[2017-03-20] MEDS: NITROGLYCERIN 0.4MG/HR TOPICAL PATCH TD SCH (09:10)
[2017-03-20] MEDS: CHLORHEXIDINE 0.12% ORAL rinse 473ML MT SCH ×2 (09:11→21:34)
[2017-03-20] MEDS: Boost Glucose Control 8 Ounces PO SCH ×4 (09:11→18:00)
[2017-03-20] MEDS: HYDROcodone-ACET 5/325MG TAB PO PRN ×2 (09:12→17:57)
[2017-03-20] MEDS ORDERED: POTASSIUM CHL 20 Meq TABLET PO ONE (10:15)
[2017-03-20] MEDS ORDERED: CALCIUM GLUC 4.65meq/50ml D5AE 50 ML IV ONE (10:30)
[2017-03-20] MEDS ORDERED: fentaNYL CITRATE 100 MCG/2 ML VL ONE (12:29)
[2017-03-20] MEDS ORDERED: fentaNYL CITRATE 100 MCG/2 ML VL IV ONE (12:30)
[2017-03-20] MEDS: amLODIPine BESYLATE 5 MG TAB PO SCH (13:07)
[2017-03-20] MEDS: FERROUS SULFATE 325 MG TAB PO SCH (17:57)
[2017-03-20] MEDS ORDERED: FERROUS SULFATE 325 MG TAB PO SCH (18:00)
[2017-03-20] MEDS: SODIUM CHLORIDE 0.9% 500 ML IV SCH (18:06)
[2017-03-20] MEDS: AMIODARONE HCL 900 MG in DEXTROSE 500 ML IV SCH (20:50)
[2017-03-20] MEDS: MORPHINE SULF INJ 2 MG/ML SYRINGE 1ML IV PRN (21:14)
[2017-03-20] MEDS: ATORVASTATIN 20 MG TAB PO SCH (21:34)
[2017-03-20] MEDS: SENNA 8.6 MG TAB PO PRN (21:35)
[2017-03-21] VITALS (43 sets, daily range): BP systolic 110–147; BP diastolic 65–93
[2017-03-21] MEDS: NICARDIPINE 25MG/250ML BAG KIT 250 ML IV SCH ×3 (03:40→13:40)
[2017-03-21 03:51] LABS: Basophils # (auto) 0 uL; Basophils % (auto) 0.1 % (0.0-2.0); CONDITION Y; Eosinophils # (auto) 0.1 uL; Eosinophils % (auto) 0.7 % (0.0-7.0); Hematocrit 30.6 % (41.0-53.0); Hemoglobin 10.5 g/dL (13.5-17.5); Lymphocytes # (auto) 0.8 uL; Lymphocytes % (auto) 5.1 % (10.0-50.0); Mean Corpuscular Hemoglobin 31.8 pg (28.0-32.0); Mean Corpuscular Hgb Conc. 34.3 g/dL (32.0-36.0); Mean Corpuscular Volume 92.7 fL (80.0-100.0); Mean Platelet Volume 9.7 fL (7.4-10.4); Monocytes # (auto) 0.8 uL; Monocytes % (auto) 5.6 % (0.0-12.0); Neutrophils # (auto) 13.4 uL; Neutrophils % (auto) 88.5 % (37.0-80.0); Platelet Count (auto) 112 10^3/uL (140-450); Red Cell Distribution Width 16.6 % (11.6-16.0); White Blood Cell 15.2 10^3/uL (4.4-10.8)
[2017-03-21 04:09] LABS: Calcium 7.7 mg/dL (8.5-10.1); Chloride 98 mmol/L (98-107); Potassium 4.1 mmol/L (3.5-5.1); Sodium 134 mmol/L (136-145)
[2017-03-21 04:13] LABS: Albumin 2.9 g/dL (3.4-5.0); Anion Gap 16 (5-15); BUN/Creatinine Ratio 8.8; Blood Urea Nitrogen 69 mg/dL (7-18); Carbon Dioxide 20 mmol/L (21-32); GFR African American 9 mL/min; GFR Non-African American 7 mL/min; Glucose 106 mg/dL (74-106); Magnesium 2.8 mg/dL (1.6-2.6)
[2017-03-21 04:26] LABS: Alkaline Phosphatase 74 U/L (45-117); Aspartate Aminotransferase 24 U/L (15-37); Bilirubin, Total 0.8 mg/dL (0.2-1.0); Total Protein 5.8 g/dL (6.4-8.2)
[2017-03-21] MEDS: FUROSEMIDE 40 MG TAB PO SCH ×2 (05:47→19:00)
[2017-03-21] MEDS: IPRATROPIUM BROM 0.5 MG/2.5ML INH SOL NEB SCH ×5 (06:03→22:10)
[2017-03-21] MEDS: ACETYLCYSTEINE 10 %(100MG/ML) SOL 4ML NEB SCH ×3 (06:03→22:10)
[2017-03-21] MEDS: ACCU-CHEK COMFORT CURVE STRIP VI SCH ×4 (06:59→22:00)
[2017-03-21] MEDS: LEVOTHYROXINE SODIUM 25 MCG TAB PO SCH (06:59)
[2017-03-21] MEDS: InsuLIN REG 1unit/0.01ml Soln (100units/ml) SC SCH ×2 (06:59→22:00)
[2017-03-21] MEDS: Boost Glucose Control 8 Ounces PO SCH ×3 (08:29→19:00)
[2017-03-21] MEDS: CALCIUM ACETATE 667 MG CAP PO SCH ×2 (08:30→19:00)
[2017-03-21] MEDS: FERROUS SULFATE 325 MG TAB PO SCH ×2 (08:30→19:00)
[2017-03-21] MEDS: POTASSIUM CHL 20 Meq TABLET PO SCH (10:00)
[2017-03-21] MEDS ORDERED: POTASSIUM CHL 20 Meq TABLET PO SCH (10:00)
[2017-03-21] MEDS: amLODIPine BESYLATE 5 MG TAB PO SCH (10:00)
[2017-03-21] MEDS: PANTOPRAZOLE 40 MG TAB PO SCH (12:57)
[2017-03-21] MEDS: ASPirin 81 mg TAB PO SCH (12:57)
[2017-03-21] MEDS: NITROGLYCERIN 0.4MG/HR TOPICAL PATCH TD SCH (12:57)
[2017-03-21] MEDS: DOCUSATE SOD 100 MG CAP PO SCH ×2 (12:57→21:31)
[2017-03-21] MEDS: ASCORBIC ACID 500 MG TAB PO SCH ×2 (12:58→21:31)
[2017-03-21] MEDS: METOPROLOL TARTRATE 25 MG TAB PO SCH ×2 (12:58→21:31)
[2017-03-21] MEDS: CHLORHEXIDINE 0.12% ORAL rinse 473ML MT SCH ×2 (13:04→22:12)
[2017-03-21] MEDS: SODIUM CHLORIDE 0.9% 500 ML IV SCH (14:40)
[2017-03-21] MEDS: AMIODARONE HCL 900 MG in DEXTROSE 500 ML IV SCH (20:50)
[2017-03-21] MEDS: ATORVASTATIN 20 MG TAB PO SCH (21:31)
[2017-03-21] MEDS: MORPHINE SULF INJ 2 MG/ML SYRINGE 1ML IV PRN (21:53)
[2017-03-22] VITALS (81 sets, daily range): BP systolic 113–156; BP diastolic 67–101
[2017-03-22 03:55] LABS: Basophils # (auto) 0 uL; CONDITION Y; Eosinophils # (auto) 0.3 uL; Eosinophils % (auto) 2.8 % (0.0-7.0); Hematocrit 31.5 % (41.0-53.0); Hemoglobin 10.6 g/dL (13.5-17.5); Lymphocytes # (auto) 0.7 uL; Lymphocytes % (auto) 5.6 % (10.0-50.0); Mean Corpuscular Hemoglobin 31.5 pg (28.0-32.0); Mean Corpuscular Hgb Conc. 33.7 g/dL (32.0-36.0); Mean Corpuscular Volume 93.6 fL (80.0-100.0); Mean Platelet Volume 9.5 fL (7.4-10.4); Monocytes # (auto) 1.2 uL; Monocytes % (auto) 10.5 % (0.0-12.0); Neutrophils # (auto) 9.6 uL; Neutrophils % (auto) 81.1 % (37.0-80.0); Platelet Count (auto) 138 10^3/uL (140-450); Red Cell Distribution Width 16.3 % (11.6-16.0); White Blood Cell 11.9 10^3/uL (4.4-10.8)
[2017-03-22 04:37] LABS: Albumin 2.8 g/dL (3.4-5.0); BUN/Creatinine Ratio 8.9; Bilirubin, Total 0.8 mg/dL (0.2-1.0); Calcium 7.5 mg/dL (8.5-10.1); Magnesium 2.7 mg/dL (1.6-2.6); Total Protein 5.9 g/dL (6.4-8.2)
[2017-03-22] MEDS: FUROSEMIDE 40 MG TAB PO SCH ×2 (06:03→18:54)
[2017-03-22] MEDS: LEVOTHYROXINE SODIUM 25 MCG TAB PO SCH (06:03)
[2017-03-22] MEDS: ACETYLCYSTEINE 10 %(100MG/ML) SOL 4ML NEB SCH ×3 (06:06→21:38)
[2017-03-22] MEDS: IPRATROPIUM BROM 0.5 MG/2.5ML INH SOL NEB SCH ×5 (06:06→21:38)
[2017-03-22] MEDS: ACCU-CHEK COMFORT CURVE STRIP VI SCH ×2 (06:13→11:30)
[2017-03-22] MEDS: hydrALAZINE HCL 20 MG/ML VL IV PRN (06:34)
[2017-03-22] MEDS: CALCIUM ACETATE 667 MG CAP PO SCH ×2 (08:51→18:55)
[2017-03-22] MEDS: FERROUS SULFATE 325 MG TAB PO SCH ×2 (08:51→18:55)
[2017-03-22] MEDS: Boost Glucose Control 8 Ounces PO SCH ×4 (08:51→18:55)
[2017-03-22] MEDS: DOCUSATE SOD 100 MG CAP PO SCH ×2 (10:31→21:28)
[2017-03-22] MEDS: amLODIPine BESYLATE 5 MG TAB PO SCH (10:31)
[2017-03-22] MEDS: PANTOPRAZOLE 40 MG TAB PO SCH (10:31)
[2017-03-22] MEDS: ASCORBIC ACID 500 MG TAB PO SCH ×2 (10:31→21:28)
[2017-03-22] MEDS: NITROGLYCERIN 0.4MG/HR TOPICAL PATCH TD SCH (10:31)
[2017-03-22] MEDS: POTASSIUM CHL 20 Meq TABLET PO SCH (10:32)
[2017-03-22] MEDS: METOPROLOL TARTRATE 25 MG TAB PO SCH ×2 (10:32→21:29)
[2017-03-22] MEDS: ASPirin 81 mg TAB PO SCH (10:32)
[2017-03-22] MEDS: CHLORHEXIDINE 0.12% ORAL rinse 473ML MT SCH ×2 (10:33→21:29)
[2017-03-22] MEDS: SODIUM CHLORIDE 0.9% 500 ML IV SCH (14:40)
[2017-03-22] MEDS: AMIODARONE HCL 900 MG in DEXTROSE 500 ML IV SCH (20:50)
[2017-03-22] MEDS: ATORVASTATIN 20 MG TAB PO SCH (21:28)
[2017-03-23] VITALS (24 sets, daily range): BP systolic 99–150; BP diastolic 54–96
[2017-03-23 03:48] LABS: Basophils # (auto) 0 uL; Basophils % (auto) 0.1 % (0.0-2.0); CONDITION Y; Eosinophils # (auto) 0.4 uL; Eosinophils % (auto) 3.1 % (0.0-7.0); Hematocrit 30.9 % (41.0-53.0); Hemoglobin 10.4 g/dL (13.5-17.5); Lymphocytes # (auto) 0.5 uL; Mean Corpuscular Hemoglobin 31.5 pg (28.0-32.0); Mean Corpuscular Hgb Conc. 33.5 g/dL (32.0-36.0); Mean Corpuscular Volume 94.1 fL (80.0-100.0); Mean Platelet Volume 9.4 fL (7.4-10.4); Monocytes # (auto) 1.5 uL; Monocytes % (auto) 11.7 % (0.0-12.0); Neutrophils # (auto) 10.2 uL; Neutrophils % (auto) 81.1 % (37.0-80.0); Platelet Count (auto) 162 10^3/uL (140-450); White Blood Cell 12.6 10^3/uL (4.4-10.8)
[2017-03-23 04:30] LABS: BUN/Creatinine Ratio 10.3; Potassium 4.1 mmol/L (3.5-5.1)
[2017-03-23] MEDS: ACETYLCYSTEINE 10 %(100MG/ML) SOL 4ML NEB SCH ×3 (05:57→22:04)
[2017-03-23] MEDS: IPRATROPIUM BROM 0.5 MG/2.5ML INH SOL NEB SCH ×5 (05:57→22:04)
[2017-03-23] MEDS: FUROSEMIDE 40 MG TAB PO SCH ×2 (05:59→18:30)
[2017-03-23] MEDS: MORPHINE SULF INJ 2 MG/ML SYRINGE 1ML IV PRN (06:03)
[2017-03-23] MEDS: LEVOTHYROXINE SODIUM 25 MCG TAB PO SCH (06:30)
[2017-03-23] MEDS: Boost Glucose Control 8 Ounces PO SCH ×3 (08:30→18:30)
[2017-03-23] MEDS: FERROUS SULFATE 325 MG TAB PO SCH ×2 (09:26→18:30)
[2017-03-23] MEDS: ASCORBIC ACID 500 MG TAB PO SCH (09:26)
[2017-03-23] MEDS: DOCUSATE SOD 100 MG CAP PO SCH ×2 (09:26→21:55)
[2017-03-23] MEDS: ASPirin 81 mg TAB PO SCH (09:26)
[2017-03-23] MEDS: PANTOPRAZOLE 40 MG TAB PO SCH (09:26)
[2017-03-23] MEDS: CALCIUM ACETATE 667 MG CAP PO SCH ×2 (09:26→18:30)
[2017-03-23] MEDS: POTASSIUM CHL 20 Meq TABLET PO SCH (09:26)
[2017-03-23] MEDS: CHLORHEXIDINE 0.12% ORAL rinse 473ML MT SCH ×2 (09:27→21:55)
[2017-03-23] MEDS: amLODIPine BESYLATE 5 MG TAB PO SCH (10:00)
[2017-03-23] MEDS ORDERED: METOPROLOL TARTRATE 25 MG TAB PO SCH (10:00)
[2017-03-23] MEDS ORDERED: AML5T PO (10:46)
[2017-03-23] MEDS ORDERED: FER325T PO (10:46)
[2017-03-23] MEDS ORDERED: MET25T PO (10:46)
[2017-03-23] MEDS: NITROGLYCERIN 0.4MG/HR TOPICAL PATCH TD SCH (11:08)
[2017-03-23] MEDS ORDERED: METOPROLOL TARTRATE 25 MG TAB ONE (11:19)
[2017-03-23] MEDS ORDERED: METOPROLOL TARTRATE 50 MG TAB PO ONE ×2 (11:30)
[2017-03-23] MEDS ORDERED: EPOETIN ALFA 10,000 UNIT/1 ML VIAL IV ONE (12:00)
[2017-03-23] MEDS ORDERED: SODIUM CHL 0.9% 1000 ML BAG XX ONE (12:00)
[2017-03-23] MEDS ORDERED: NEOMYCIN-BACITRACIN-POLYM UNITDOSE PKG TOP OINT TOP ONE ×2 (14:45)
[2017-03-23] MEDS: AMIODARONE HCL 900 MG in DEXTROSE 500 ML IV SCH (20:50)
[2017-03-23] MEDS: METOPROLOL TARTRATE 25 MG TAB PO SCH (21:55)
[2017-03-23] MEDS: ATORVASTATIN 20 MG TAB PO SCH (21:55)
[2017-03-23] MEDS: SENNA 8.6 MG TAB PO PRN (21:55)
[2017-03-24] VITALS (21 sets, daily range): BP systolic 111–144; BP diastolic 69–87
[2017-03-24] MEDS: FUROSEMIDE 40 MG TAB PO SCH (06:07)
[2017-03-24] MEDS: ACETYLCYSTEINE 10 %(100MG/ML) SOL 4ML NEB SCH (06:18)
[2017-03-24] MEDS: LEVOTHYROXINE SODIUM 25 MCG TAB PO SCH (07:00)
[2017-03-24] MEDS: Boost Glucose Control 8 Ounces PO SCH (08:00)
[2017-03-24] MEDS: FERROUS SULFATE 325 MG TAB PO SCH (08:43)
[2017-03-24] MEDS: CALCIUM ACETATE 667 MG CAP PO SCH (08:43)
[2017-03-24] MEDS: CHLORHEXIDINE 0.12% ORAL rinse 473ML MT SCH (10:00)
[2017-03-24] MEDS ORDERED: NEOMYCIN-BACITRACIN-POLYM UNITDOSE PKG TOP OINT TOP SCH (10:00)
[2017-03-24 10:07] LABS: BUN/Creatinine Ratio 8.4; Potassium 3.9 mmol/L (3.5-5.1)
[2017-03-24] MEDS: amLODIPine BESYLATE 5 MG TAB PO SCH (11:02)
[2017-03-24] MEDS: ASPirin 81 mg TAB PO SCH (11:02)
[2017-03-24] MEDS: POTASSIUM CHL 20 Meq TABLET PO SCH (11:02)
[2017-03-24] MEDS: METOPROLOL TARTRATE 25 MG TAB PO SCH (11:03)
[2017-03-24] MEDS: PANTOPRAZOLE 40 MG TAB PO SCH (11:03)
[2017-03-24] MEDS: DOCUSATE SOD 100 MG CAP PO SCH (11:03)
[2017-03-24] MEDS: NITROGLYCERIN 0.4MG/HR TOPICAL PATCH TD SCH (11:05)
== END 2017-03-24 13:10 | disposition home health service (06) | DRG 233 ==
LOC: ER 15:17 → TELE 15:18 → DOU IN ICU 22:53 → TELE-WESTW 03-15 18:55 → ICU WEST 03-16 22:05
PROVIDERS: ADMIT Nurse Practitioner Family; ATTEND Internal Medicine
PROC: 4A023N7 Measurement of Cardiac Sampling and Pressure, Left Heart, Percutaneous Approach (ICD-10-PCS; 2017-03-16)
PROC: 30233L1 Transfusion of Nonautologous Fresh Plasma into Peripheral Vein, Percutaneous Approach (ICD-10-PCS; 2017-03-16)
PROC: 30233N1 Transfusion of Nonautologous Red Blood Cells into Peripheral Vein, Percutaneous Approach (ICD-10-PCS; 2017-03-16)
PROC: 30233R1 Transfusion of Nonautologous Platelets into Peripheral Vein, Percutaneous Approach (ICD-10-PCS; 2017-03-16)
PROC: 30233K1 Transfusion of Nonautologous Frozen Plasma into Peripheral Vein, Percutaneous Approach (ICD-10-PCS; 2017-03-16)
PROC: B2111ZZ Fluoroscopy of Multiple Coronary Arteries using Low Osmolar Contrast (ICD-10-PCS; 2017-03-16)
PROC: 021309W Bypass Coronary Artery, Four or More Arteries from Aorta with Autologous Venous Tissue, Open Approach (ICD-10-PCS; 2017-03-17)
PROC: 06BQ3ZZ Excision of Left Saphenous Vein, Percutaneous Approach (ICD-10-PCS; 2017-03-17)
PROC: 06BP3ZZ Excision of Right Saphenous Vein, Percutaneous Approach (ICD-10-PCS; 2017-03-17)
PROC: 5A1D60Z (ICD-10-PCS; 2017-03-17)
PROC: 5A1221Z Performance of Cardiac Output, Continuous (ICD-10-PCS; 2017-03-17)
PROC: 02100Z9 Bypass Coronary Artery, One Artery from Left Internal Mammary, Open Approach (ICD-10-PCS; principal; 2017-03-17 06:56)
DX: I21.4 Non-ST elevation (NSTEMI) myocardial infarction (principal); N18.6 End stage renal disease; J96.01 Acute respiratory failure with hypoxia; I13.11 Hypertensive heart and chronic kidney disease without heart failure, with stage 5 chronic kidney disease, or end stage renal disease; D62 Acute posthemorrhagic anemia; I25.110 Atherosclerotic heart disease of native coronary artery with unstable angina pectoris; D63.1 Anemia in chronic kidney disease; E03.9 Hypothyroidism, unspecified; E78.5 Hyperlipidemia, unspecified; F41.9 Anxiety disorder, unspecified; E78.00 Pure hypercholesterolemia, unspecified; I65.21 Occlusion and stenosis of right carotid artery; E83.51 Hypocalcemia; M10.9 Gout, unspecified; T45.525A Adverse effect of antithrombotic drugs, initial encounter; E83.39 Other disorders of phosphorus metabolism; I35.1 Nonrheumatic aortic (valve) insufficiency; R79.1 Abnormal coagulation profile; Z87.891 Personal history of nicotine dependence; Z99.2 Dependence on renal dialysis; Z95.5 Presence of coronary angioplasty implant and graft; Y92.89 Other specified places as the place of occurrence of the external cause
CPT/HCPCS: 36415; 36600; 71010; 80048; 80053; 80061; 81001; 82607; 82746; 82805; 82962; 83036; 83735; 84100; 84132; 84443; 84484; 85007; 85014; 85018; 85025; 85027; 85576; 85610; 85730; 86850; 86900; 86901; 86920; 87070; 87081; 87205; 90935; 93005; 93306; 93886; 93970; 94002; 94003; 94640; 94660; 96374; 97116; 97163; 97530; 99152; 99291; C9113; J0153; J0610; J0690; J0885; J1100; J1642; J1644; J1815; J2250; J2440; J2704; J2720; J3480; J7060; Q9967